=== PATIENT | male | born 1960 | race Caucasian/White ===

== ENCOUNTER 2023-02-22 14:36 | Inpatient (IN) | payer OTHER ==
[~2023-02-22] VITALS: Ht 170.2 cm; Wt 79.4 kg
[2023-02-22 15:15] LABS: BASOPHILS ABSOLUTE AUTO 0.02 K/mm3 (0.00-0.23); BASOPHILS PERCENT AUTO 0 % (0-2); EOSINOPHILS ABSOLUTE AUTO 0.08 K/mm3 (0.00-0.68); EOSINOPHILS PERCENT AUTO 1 % (0-6); Hematocrit 37.2 % (37.0-53.0); Hemoglobin 12.3 g/dL (13.5-17.5); IMMATURE GRAN ABSOLUTE AUTO 0.06 K/mm3 (0.00-0.10); IMMATURE GRAN PERCENT AUTO 1 % (0-1); LYMPHOCYTES ABSOLUTE AUTO 0.65 K/mm3 (0.84-5.20); LYMPHOCYTES PERCENT AUTO 5 % (21-46); MONOCYTES ABSOLUTE AUTO 0.95 K/mm3 (0.16-1.47); MONOCYTES PERCENT AUTO 8 % (4-13); Mean Corpuscular HGB 24.6 pg (26.0-34.0); Mean Corpuscular HGB Conc 33.1 g/dL (31.5-36.5); Mean Corpuscular Volume 75 fL (80-100); Mean Platelet Volume 9.3 fL (9.1-12.4); NEUTROPHILS ABSOLUTE AUTO 10.65 K/mm3 (1.96-9.15); NEUTROPHILS PERCENT AUTO 86 % (41-73); Platelet Count 587 K/mm3 (150-400); RDW Coefficient Variation 17.9 % (11.7-14.2); RDW Standard Deviation 47.5 fL (35.1-46.3); Red Blood Cell Count 4.99 M/mm3 (4.30-5.90); White Blood Cell Count 12.41 K/mm3 (4.00-11.30)
[2023-02-22 15:32] LABS: Albumin, Blood 2.2 g/dL (3.4-5.0); Albumin/Globulin Ratio 0.4 (0.8-1.8); Bilirubin, Total 3.2 mg/dL (0.1-1.0); Bun/Creatinine Ratio 59.4 (12.0-20.0); Calcium, Blood 8.7 mg/dL (8.5-10.1); Creatinine, Blood 0.57 mg/dL (0.60-1.20); Globulin, Blood 5.2 g/dL (2.2-4.0); Potassium, Blood 4.5 mmol/L (3.5-5.5); Total Protein, Blood 7.4 g/dL (6.4-8.2)
[2023-02-22 17:10] LABS: Source, Urine Clean Catch
[2023-02-22 17:13] LABS: Appearance, Urine Clear (Clear); Blood, Urine Neg (Neg); Color, Urine Amber (P-Yellow); Glucose Qualitative, Urine Neg (Neg); Ketones, Urine 1+ (Neg); Leukocyte Esterase, Urine 1+ (Neg); Nitrite, Urine Pos (Neg); Protein, Urine 2+ (Neg); Urobilinogen, Urine 4+ (Normal)
[2023-02-22 17:18] LABS: Bilirubin, Urine 2+ (Neg)
[2023-02-22 17:19] LABS: Bacteria Mod /hpf; Red Blood Cells, Urine 0-2 /hpf (0-2); Squamous Epithelial Cells Rare /hpf (Few); Transitional Epithelial Cells Rare /hpf (0-Rare)
[2023-02-22 19:26] LABS: U Amphetamine Screen DETECTED; U Barbituate Screen Not Detected; U Benzodiazapine Screen Not Detected; U Buprenorphine Screen Not Detected; U Cannabinoids Screen Not Detected; U Cocaine Screen Not Detected; U Methadone Screen Not Detected; U Methamphetamine Screen DETECTED; U Opiates Screen Not Detected; U Oxycodone Screen Not Detected; U Phencyclidine Screen Not Detected
[2023-02-22 19:30] LABS: International Normalized Ratio 1.31; Prothrombin Time Results 13.5 Sec (9.7-11.5)
[2023-02-22 20:08] LABS: Percent Saturation 6.2 % (20.0-50.0)
[2023-02-22 21:53] VITALS: BP 114/76
--- NOTE | 2023-02-23 03:33 | NUR ---
SHIFT SUMMARY PT ER ADMIT THIS SHIFT FOR UTI. PMH OF COPD, AND DM 2. PT HAS ALSO BEEN DIAGNOSED THIS ADMISSION WITH CARDIOMEAGLY, PULMONARY EDEMA AND PLEURAL EFFUSION. IMAGING ALSO REVEALED CIRRHOTIC MORPHOLOGY. PT ABD SEVERELY DISTENDED AND FIRM. PARACENTESIS HAS BEEN ORDERED. PT HAS BEEN LIVING IN POOR CONDITIONS, AND HAS NOT BEEN SEEING A PCP OR TAKING ANY MEDICATIONS. HE REPORTS THAT HE DOES NOT HAVE ANY RUNNING WATER OR ELECTRICITY. POSTIVE DRUG HX, WITH METH USE IN RECENT WEEKS. WHEN PT ARRIVED TO UNIT HE IMMEDIATELY WANTED TO LEAVE, STATING THAT HE FELT OVERWHELMED WITH THE DX AND ALL THE INFORMATION HE HAD BEEN GIVEN. PT HAD SOME FRIENDS AT BEDSIDE, WHO WERE ABLE TO ENCOURAGE PT TO STAY. PT ALSO EDUCATED ON THE BENEFITS OF STAYING AND RECEIVING TREATMENT. PT IS AGREEABLE TO STAYING IN HOSPITAL AT THIS TIME. PT ON RA, VITALS ARE STABLE. PT REPORTS HEADACHE AND GENERALIZED PAIN THIS SHIFT THAT IS RELIEVED WITH MEDS PER EMAR. ADMISSION COMPLETE. BED IN LOWEST POSITION, CALL LIGHT WITHIN REACH.
[2023-02-23 04:26] VITALS: BP 113/78
[2023-02-23 05:14] LABS: Hematocrit 37.5 % (37.0-53.0); Hemoglobin 12.3 g/dL (13.5-17.5); Mean Corpuscular HGB 24.3 pg (26.0-34.0); Mean Corpuscular HGB Conc 32.8 g/dL (31.5-36.5); Mean Corpuscular Volume 74 fL (80-100); Mean Platelet Volume 9.8 fL (9.1-12.4); Platelet Count 655 K/mm3 (150-400); RDW Coefficient Variation 17.8 % (11.7-14.2); RDW Standard Deviation 47.1 fL (35.1-46.3); Red Blood Cell Count 5.06 M/mm3 (4.30-5.90); White Blood Cell Count 10.95 K/mm3 (4.00-11.30)
[2023-02-23 05:40] LABS: Albumin, Blood 2.1 g/dL (3.4-5.0); Albumin/Globulin Ratio 0.4 (0.8-1.8); Bilirubin, Total 2.9 mg/dL (0.1-1.0); Bun/Creatinine Ratio 60.2 (12.0-20.0); Calcium, Blood 8.2 mg/dL (8.5-10.1); Creatinine, Blood 0.55 mg/dL (0.60-1.20); Globulin, Blood 5.1 g/dL (2.2-4.0); Potassium, Blood 4.5 mmol/L (3.5-5.5); Total Protein, Blood 7.2 g/dL (6.4-8.2)
--- NOTE | 2023-02-23 05:48 | NUR ---
HEADACHE PT REPORTS SOLITARIO IS NOT IMPROVED WITH FENTANYL. WHEN ROUNDING SHORTLY AFTER ADMINISTRATION PT APPEARED TO BE SLEEPING. PT STATES HE WANTED TO ONLY TAKE A SMALL DOSE OF FENTANYL, 25 MCG GIVEN PER ORDERS. PT NOW AWAKE STATING THAT SOLITARIO ISNT ANY BETTER. DR. DEE NOTIFIED THAT FENTANYL INEFFECTIVE FOR SOLITARIO. FIORINAL AND IMITREX ORDRED. PT TO HAVE PARACENTESIS, PHARMACY CONSULTED. PHARMACIST TYRON BECK ACKNOWLEDGED ORDER AND STATES TO HOLD OFF ON FIORINAL FOR NOW DUE TO THE ASPIRIN AND BLEEDING RISK BUT IMITREX IS OK TO GIVE.
[2023-02-23 08:23] VITALS: BP 124/93
--- NOTE | 2023-02-23 10:13 | NUR ---
NOTE: RECEIVED A PHONE MESSAGE FROM EDGAR HARDIN, PER HER, SHE IS THE COUSIN AND NEIGHBOR OF THE PT. SPOKE WITH THE PT ABOUT SHARING INFORMATION WITH HER AND HE SAID "NO".
[2023-02-23 16:37] VITALS: BP 113/72
--- NOTE | 2023-02-23 17:54 | NUR ---
SHIFT SUMMARY PT AOX4, SBA TO THE BATHROOM. HIS MOOD WAXES AND WANES, HE CAN BE PLEASANT AT TIMES AND IRRITABLE AT TIMES. PARACENTESIS COMPLETED TODAY, 8 LITERS REMOVED AND HE IS NOW FINISHING UP HIS ALBUMIN INFUSION. NO COMPLAINTS THIS SHIFT OTHER THAN THE FACT THAT HE IS HERE. FAMILY HAS BEE AT THE BS T/O THE SHIFT. HE CALLS AND MAKES HIS NEEDS KNOWN. CALL LIGHT WITHIN REACH, BED IN THE LOWEST POSITION. WILL REPORT TO ONCOMING NURSE.
[2023-02-23 19:27] VITALS: BP 108/76
[2023-02-24 04:21] VITALS: BP 90/60
[2023-02-24 06:06] LABS: Hematocrit 36.1 % (37.0-53.0); Hemoglobin 11.7 g/dL (13.5-17.5); Mean Corpuscular HGB 24.3 pg (26.0-34.0); Mean Corpuscular HGB Conc 32.4 g/dL (31.5-36.5); Mean Corpuscular Volume 75 fL (80-100); Mean Platelet Volume 9.3 fL (9.1-12.4); Platelet Count 718 K/mm3 (150-400); RDW Coefficient Variation 17.9 % (11.7-14.2); RDW Standard Deviation 47.5 fL (35.1-46.3); Red Blood Cell Count 4.82 M/mm3 (4.30-5.90); White Blood Cell Count 9.77 K/mm3 (4.00-11.30)
--- NOTE | 2023-02-24 06:15 | NUR ---
SHIFT SUMMARY: PENG IS A&OX4. VSS, BP TRENDING DOWN. HE IS TOLERATING PO INTAKE WELL, IS A STANDBY ASSIST TO THE BATHROOM, AND REPORTS TWO EPISODES OF DIARRHEA THIS SHIFT. HE DID BECOME TEARFUL WHEN DISCUSSING HIS ESTRANGED FAMILY, STATING THAT HE WISHED HIS DAUGHTER WAS HERE TO HOLD HIS HAND. PT HAD A SHOWER THIS SHIFT. HE STATES THAT HIS HOME HAS NOT HAD ELECTRICITY FOR SIX MONTHS AND THAT HE IS LOSING IT IN MAY TO FORECLOSURE. IV TO R WRIST PATENT. HE IS LYING IN BED WITH THE CALL LIGHT IN REACH, WHICH HE USES APPROPRIATELY. WILL REPORT TO ONCOMING RN.
[2023-02-24 06:31] LABS: Albumin, Blood 2.4 g/dL (3.4-5.0); Anion Gap 6 mmol/L (6-16); Blood Urea Nitrogen 25 mg/dL (8-24); Bun/Creatinine Ratio 53.1 (12.0-20.0); CO2, Blood 27 mmol/L (21-32); Chloride, Blood 102 mmol/L (98-108); Creatinine, Blood 0.47 mg/dL (0.60-1.20); Glomerular Filtration Rate 118 (60-); Glucose, Blood 131 mg/dL (70-99); Magnesium, Blood 2.3 mg/dL (1.6-2.4); Phosphorus, Blood 2.7 mg/dL (2.5-4.9); Potassium, Blood 4.2 mmol/L (3.5-5.5); Sodium, Blood 135 mmol/L (136-145)
[2023-02-24 07:54] VITALS: BP 96/76
[2023-02-24 15:51] LABS: HEPATITIS A ANTIBODY, IGM Negative (Negative); HEPATITIS B CORE ANTIBODY, IGM Negative (Negative); HEPATITIS B SURFACE ANTIGEN Negative (Negative); HEPATITIS C AB CIA INTERP Negative (Negative); HEPATITIS C ANTIBODY CIA INDEX 0.09 IV
[2023-02-24 17:19] VITALS: BP 112/76
--- NOTE | 2023-02-24 18:20 | NUR ---
SHIFT SUMMARY PT AOX4, INDEPENDENT. MULTIPLE FAMILY MEMBERS AT THE BS. NO COMPLAINTS OTHER THAN THAT HE WAS HUNGRY. SNACKS GIVEN AT HIS REQUEST. AM LASIX HELD PER THE PROVIDER, THE BP WAS TOO LOW. PT CALLS OFTEN AND MAKES HIS NEEDS KNOWN. CALL LIGHT WITHIN REACH, BED IN THE LOWEST POSITION. WILL REPORT TO ONCOMING NURSE.
[2023-02-24 21:02] VITALS: BP 101/65
[2023-02-25 03:42] VITALS: BP 83/56
--- NOTE | 2023-02-25 03:53 | NUR ---
SHIFT SUMMARY: PENG IS A&OX4. BP SOFT, MAP 65, MAINTAINING SATS ORA, HEART RATE STABLE. PT IS INDEPENDENT IN THE ROOM, BUT DOES CALL FOR ASSISTANCE NEEDED. IV TO RIGHT WRIST PATENT. HE IS TOLERATING PO INTAKE WELL, REPORTS URINATING WITHOUT DIFFICULTY AND DENIES ANY FURTHER EPISODES OF DIARRHEA AFTER LAST NIGHT. PT IS PLEASANT AND COOPERATIVE WITH CARE. HE IS LYING IN BED WITH THE CALL LIGHT IN REACH. WILL GIVE REPORT TO DAY SHIFT RN.
[2023-02-25 05:01] LABS: BASOPHILS ABSOLUTE AUTO 0.04 K/mm3 (0.00-0.23); BASOPHILS PERCENT AUTO 1 % (0-2); EOSINOPHILS PERCENT AUTO 1 % (0-6); Hematocrit 36.8 % (37.0-53.0); Hemoglobin 11.9 g/dL (13.5-17.5); IMMATURE GRAN ABSOLUTE AUTO 0.06 K/mm3 (0.00-0.10); IMMATURE GRAN PERCENT AUTO 1 % (0-1); LYMPHOCYTES ABSOLUTE AUTO 0.92 K/mm3 (0.84-5.20); LYMPHOCYTES PERCENT AUTO 12 % (21-46); MONOCYTES ABSOLUTE AUTO 0.51 K/mm3 (0.16-1.47); MONOCYTES PERCENT AUTO 6 % (4-13); Mean Corpuscular HGB 24.4 pg (26.0-34.0); Mean Corpuscular HGB Conc 32.3 g/dL (31.5-36.5); Mean Corpuscular Volume 75 fL (80-100); NEUTROPHILS ABSOLUTE AUTO 6.28 K/mm3 (1.96-9.15); NEUTROPHILS PERCENT AUTO 79 % (41-73); Platelet Count 827 K/mm3 (150-400); RDW Coefficient Variation 17.9 % (11.7-14.2); RDW Standard Deviation 47.8 fL (35.1-46.3); Red Blood Cell Count 4.88 M/mm3 (4.30-5.90); White Blood Cell Count 7.91 K/mm3 (4.00-11.30)
[2023-02-25 05:32] LABS: Bun/Creatinine Ratio 50.2 (12.0-20.0); Calcium, Blood 7.8 mg/dL (8.5-10.1); Creatinine, Blood 0.46 mg/dL (0.60-1.20); Percent Saturation 9.7 % (20.0-50.0); Potassium, Blood 4.1 mmol/L (3.5-5.5)
[2023-02-25 08:13] VITALS: BP 102/68
[2023-02-25 08:16] LABS: International Normalized Ratio 1.28; Prothrombin Time Results 13.3 Sec (9.7-11.5)
--- NOTE | 2023-02-25 18:26 | NUR ---
SHIFT SUMMARY: PT A&O X4. COOPERATIVE WITH ALL CARE THIS SHIFT. PT C/O PAIN. HAS NOT YELLED OUT INAPPROPRIATELY. BP STABLE THIS SHIFT. LASIX GIVEN. PLAN FOR PT TO FOLLOW-UP OUTPATIENT REGARDING NON-ALCOHOLIC CIRRHOSIS. ASCITES SEVERE. PT UPSET/CRYING THIS SHIFT REGARDING DX AND POTENTIAL OUTCOME. PT ALSO UPSET WITH LIFESTYLE AND HOUSING SITUATION. INDEPENDENT IN ROOM. CALL LIGHT IN REACH. BED IN LOWEST POSITION. CURRENTLY RESTING COMFORTABLY IN BED.
[2023-02-25 19:38] VITALS: BP 109/81
[2023-02-25 22:07] LABS: HEMOGLOBIN A1C 7.1 % (4.8-5.6)
--- NOTE | 2023-02-26 02:43 | NUR ---
SHIFT SUMMARY PT RESTING QUIETLY IN BED DURING SHIFT REPORT. HALF AWAKE, BUT DID NOT WANT TO BE BOTHERED. PT MUMBLED FOR NEEDS, WANTING WATER AND LATER A WARM BLANKET. ABD VERY DISTENDED, D/T CIRRHOSIS. PT UP INDEPENDENTLY IN RM AND TO BTHRM. PT MEDICALLY STABLE AND TO D/C TO HOME LATER TODAY, PER REPORT. NO C/O, CALL LT IN REACH.
[2023-02-26 03:15] VITALS: BP 103/74
[2023-02-26 07:50] VITALS: BP 103/68
[2023-02-26] MEDS ORDERED: FURO40 PO (12:06)
[2023-02-26] MEDS ORDERED: METO25ER PO (12:10)
== END 2023-02-26 16:25 | disposition home or self-care (01) | DRG 432 ==
LOC: ER 14:36 → MEDS 20:38 → ENPENDDIS 02-26 10:01 → MEDS 02-26 16:25
PROVIDERS: Internal Medicine; Nurse Practitioner Acute Care; Student in an Organized Health Care Education/Training Program; ADMIT Internal Medicine
PROC: 0W9G3ZZ Drainage of Peritoneal Cavity, Percutaneous Approach (ICD-10-PCS; principal; 2023-02-23)
DX: K74.69 Other cirrhosis of liver (principal); E43 Unspecified severe protein-calorie malnutrition; I50.23 Acute on chronic systolic (congestive) heart failure; R18.8 Other ascites; I42.7 Cardiomyopathy due to drug and external agent; T43.651A Poisoning by methamphetamines accidental (unintentional), initial encounter; F15.10 Other stimulant abuse, uncomplicated; I50.811 Acute right heart failure; K72.10 Chronic hepatic failure without coma; E11.9 Type 2 diabetes mellitus without complications; J44.9 Chronic obstructive pulmonary disease, unspecified; F17.210 Nicotine dependence, cigarettes, uncomplicated; D50.9 Iron deficiency anemia, unspecified; T50.916A Underdosing of multiple unspecified drugs, medicaments and biological substances, initial encounter; R09.02 Hypoxemia; R51.9 Headache, unspecified; Z91.138 Patient's unintentional underdosing of medication regimen for other reason; Z68.27 Body mass index [BMI] 27.0-27.9, adult
CPT/HCPCS: 36415; 49083; 71046; 74177; 80048; 80053; 80069; 80074; 81001; 82042; 82140; 82728; 82947; 83036; 83540; 83550; 83605; 83690; 83735; 83880; 84484; 85025; 85027; 85610; 87086; 88108; 88305; 93005; 93010; 93306; 94760; 96374-59; 96375; 97110; 97162; 97530; 99285-25; A9270; J0696; J1750; J1940; J3010; J7050; P9047; Q9967